=== PATIENT | female | born 1985 | race African-American/Black ===

== ENCOUNTER 2019-05-20 02:09 | Emergency (ER) | payer MEDICAID ==
[~2019-05-20] VITALS: Ht 165.1 cm; Wt 59.0 kg
[2019-05-20 03:03] VITALS: BP 114/75
[2019-05-20] MEDS ORDERED: TETRACAINE 0.5% OPHTH DROPS 4ML BOTHEYE ONE (04:15)
== END 2019-05-20 04:43 | disposition left against medical advice (07) ==
LOC: ER 03:07
DX: Z53.21 Procedure and treatment not carried out due to patient leaving prior to being seen by health care provider (principal)